=== PATIENT | female | born 1955 | race Caucasian/White ===

== ENCOUNTER 2021-12-18 10:05 | Emergency (ER) | payer OTHER ==
[~2021-12-18] VITALS: Ht 165.1 cm; Wt 65.9 kg
[2021-12-18] MEDS ORDERED: GABA-282 PO (10:23)
[2021-12-18] MEDS ORDERED: SERT-141 PO (10:23)
[2021-12-18] MEDS ORDERED: METF500T13 PO (10:23)
[2021-12-18] MEDS ORDERED: GLIP5TAB8 PO (10:23)
[2021-12-18] MEDS ORDERED: ATOR1TAB21 PO (10:23)
[2021-12-18 11:04] LABS: BASO # 0.1 10^3/uL (0.0-0.2); BASO % 0.4 % (0.0-1.0); EOS % 0.3 % (0.0-3.0); HEMATOCRIT 40.9 % (36.0-47.0); HEMOGLOBIN 13.6 g/dl (12.0-15.5); LYMPH # 0.9 10^3/uL (1.5-5.0); LYMPH % 7.1 % (24.0-44.0); MEAN CORPUSCULAR HEMOGLOBIN 29.1 pg (27.0-33.0); MEAN CORPUSCULAR HGB CONC 33.3 g/dl (32.0-36.5); MEAN CORPUSCULAR VOLUME 87.4 fl (80.0-96.0); MONO # 0.6 10^3/uL (0.0-0.8); MONO % 4.6 % (2.0-8.0); NEUTROPHILS # 11.4 10^3/uL (1.5-8.5); NEUTROPHILS % 87.1 % (36.0-66.0); PLATELET COUNT, AUTOMATED 300 10^3/uL (150-450); RED BLOOD COUNT 4.68 10^6/uL (4.00-5.40); WHITE BLOOD COUNT 13.1 10^3/uL (4.0-10.0)
[2021-12-18] MEDS ORDERED: NS 500 ML IV ONE (11:05)
[2021-12-18 11:40] LABS: BLOOD UREA NITROGEN 10 MG/DL (7-18); CARBON DIOXIDE LEVEL 27 MEQ/L (21-32); CHLORIDE LEVEL 108 MEQ/L (98-107); CREATININE FOR GFR 0.79 MG/DL (0.55-1.30); GLOMERULAR FILTRATION RATE > 60.0 (>45); GLUCOSE, FASTING 231 MG/DL (70-100); POTASSIUM SERUM 3.8 MEQ/L (3.5-5.1); SODIUM LEVEL 142 MEQ/L (136-145)
[2021-12-18 11:41] LABS: CALCIUM LEVEL 8.5 MG/DL (8.8-10.2)
[2021-12-18 12:45] VITALS: BP 127/73
== END 2021-12-18 12:54 | disposition home or self-care (01) ==
LOC: EDBD 10:05 → M ED 10:05
DX: R55 Syncope and collapse (principal); E11.9 Type 2 diabetes mellitus without complications